=== PATIENT | female | born 1975 | race American Indian/Alaskan Native ===

== ENCOUNTER 2023-08-19 05:25 | Day surgery (SDC) | payer MEDICAID, OTHER ==
[2023-08-19] MEDS ORDERED: fentaNYL 100 MCG/2 ML SDV IV ONE (05:26)
[2023-08-19] MEDS ORDERED: Midazolam 1 MG/ML 2 ML SDV IV ONE (05:26)
[2023-08-19] MEDS: Dextrose 5%-0.45% NaCl 1,000 ML IV SCH (05:37)
[2023-08-19] MEDS ORDERED: fentaNYL 100 MCG/2 ML SDV ONE (05:56)
[2023-08-19] MEDS ORDERED: Midazolam 1 MG/ML 2 ML SDV ONE (05:56)
[2023-08-19] MEDS: Midazolam 1 MG/ML 2 ML SDV IV ONE ×2 (06:29→06:30)
[2023-08-19] MEDS: fentaNYL 100 MCG/2 ML SDV IV ONE ×2 (06:29)
== END 2023-08-19 07:55 | disposition home or self-care (01) ==
LOC: DL.ENDO 05:25
PROVIDERS: ATTEND Internal Medicine Gastroenterology
DX: K29.50 Unspecified chronic gastritis without bleeding (principal); I10 Essential (primary) hypertension; E11.9 Type 2 diabetes mellitus without complications; J45.909 Unspecified asthma, uncomplicated; D50.9 Iron deficiency anemia, unspecified
CPT/HCPCS: 43239; 87077; J2250; J3010; J7042

== ENCOUNTER → 2023-08-28 | Day surgery (SDC) | payer MEDICAID, OTHER ==
[~2023-08-28] MED LIST: Midazolam 1 MG/ML 2 ML SDV ONE; fentaNYL 100 MCG/2 ML SDV ONE
[2023-08-28] MEDS: Dextrose 5%-0.45% NaCl 1,000 ML IV SCH (06:06)
[2023-08-28] MEDS: fentaNYL 100 MCG/2 ML SDV IV ONE ×2 (07:04→07:05)
[2023-08-28] MEDS: Midazolam 1 MG/ML 2 ML SDV IV ONE ×6 (07:06→07:14)
== END ==
LOC: DL.ENDO 05:47
PROVIDERS: ATTEND Internal Medicine Gastroenterology
DX: D50.9 Iron deficiency anemia, unspecified (principal); J45.909 Unspecified asthma, uncomplicated; E11.9 Type 2 diabetes mellitus without complications; I10 Essential (primary) hypertension
CPT/HCPCS: 45378; J2250; J3010; J7042

== ENCOUNTER 2025-04-01 14:52 | Emergency (ER) | payer MEDICAID ==
[2025-04-01 15:23] LABS: BASOPHILS PERCENT AUTO 0.5 % (0.0-1.0); EOSINOPHILS PERCENT AUTO 1.5 % (1.0-3.0); LYMPHOCYTES PERCENT AUTO 58.4 % (20.5-50.1); MONOCYTES PERCENT AUTO 5.4 % (2-8); NEUTROPHILS PERCENT AUTO 34.2 % (42.2-75.2); PLATELET COUNT,PLT 581 10^3/uL (150-450); RED BLOOD CELL COUNT 5.00 10^6/uL (4.2-5.4); WHITE BLOOD CELL COUNT,WBC 6.5 10^3/uL (5.0-10.0)
[2025-04-01 15:26] LABS: APPEARANCE,URINE CLEAR (CLEAR); GLUCOSE,URINE NEGATIVE (NEGATIVE); OCCULT BLOOD,URINE NEGATIVE (NEGATIVE)
[2025-04-01 15:29] LABS: AMPHETAMINES,URINE NEGATIVE (NEGATIVE); BARBITURATES,URINE NEGATIVE (NEGATIVE); MDMA (ECSTASY), URINE NEGATIVE (NEGATIVE); METHAMPHETAMINES,URINE NEGATIVE (NEGATIVE); OPIATES,URINE NEGATIVE (NEGATIVE); OXYCODONE,URINE NEGATIVE (NEGATIVE); PHENCYCLIDINE,URINE NEGATIVE (NEGATIVE); TCA,URINE NEGATIVE (NEGATIVE)
[2025-04-01 15:36] LABS: EPITHELIAL CELLS,URINE MODERATE /HPF (NOT SEEN)
[2025-04-01 15:42] LABS: HCG QUALITATIVE,SERUM NEGATIVE (NEGATIVE)
[2025-04-01 15:43] LABS: A/G RATIO 0.6; ALANINE AMINOTRANSFERASE,ALT 24 U/L (14-59); ASPARTATE AMNIOTRANSFERASE,AST 51 U/L (15-37); BILIRUBIN TOTAL 0.3 mg/dL (0.2-1.0); BLOOD UREA NITROGEN,BUN 34 mg/dL (7-18); CARBON DIOXIDE,CO2 26 mmol/L (21-32); CHLORIDE,CL 106 mmol/L (98-107); CREATININE 0.96 mg/dL (0.55-1.02); GLUCOSE RANDOM 98 mg/dL (70-99); POTASSIUM,K 4.4 mmol/L (3.5-5.1); PROTEIN TOTAL,TP 9.4 g/dL (6.4-8.2); SODIUM,NA 143 mmol/L (136-145)
[2025-04-01 15:46] LABS: ESTIMATED GFR 72 mL/min (>=60); ETHANOL BLOOD MEDICAL 324 mg/dL (0)
== END 2025-04-01 16:04 | disposition home or self-care (01) ==
LOC: DL.ED 14:52
DX: F10.10 Alcohol abuse, uncomplicated (principal); I10 Essential (primary) hypertension; E11.9 Type 2 diabetes mellitus without complications; J45.909 Unspecified asthma, uncomplicated; Z88.0 Allergy status to penicillin; Z88.5 Allergy status to narcotic agent; Z79.899 Other long term (current) drug therapy; Y90.9 Presence of alcohol in blood, level not specified
CPT/HCPCS: 36415; 80053; 80305-QW; 80307; 81001; 84703; 85025; 99283; 99284